=== PATIENT | male | born 1965 | race Caucasian/White ===

== ENCOUNTER → 2016-08-15 | Day surgery (SDC) | payer BC ==
[~2016-08-15] VITALS: Ht 177.8 cm; Wt 83.0 kg
[~2016-08-15] MED LIST: ACETAMINOPHEN 1000 MG/100 ML VIAL IV ONE; ACETAMINOPHEN/HYDROcodone 325 MG/5 MG TAB PO PRN; BUPIVACAINE/EPINEPHRINE 0.25% 50 ML VIAL ONE; BUPIVACAINE/EPINEPHRINE 0.5% 50 ML VIAL ONE; CHLORHEXIDINE GLUCONATE 2 % 1 PACK (2 CLOTHS) TOPICAL PRN; CHLORHEXIDINE GLUCONATE 4% SOLN 120 ML BTL TOPICAL SCH; DO NOT ADM ANY ANTICOAGULANT DRUGS PRN; EPINEPHrine HCL (1:1000) 30 MG/30 ML VIAL ONE; EPINEPHrine HCL (1:1000) 30 MG/30 ML VIAL OTHER ONE; INSULIN HUMAN REGULAR 1,000 UNITS/10 ML VIAL SQ PRN; LACTATED RINGER'S 1000 ML INJ 1,000 ML IV ONE; LACTATED RINGER'S 1000 ML IV PRN; METOPROLOL TARTRATE 25 MG TAB PO PRN; MIDAZOLAM HCL 2 MG/2 ML VIAL ONE; MORPHINE SULFATE 4 MG/ML INJ IV PUSH PRN; MORPHINE SULFATE 8 MG/ML INJ IV PUSH PRN; NORC5TAB PO; ONDANSETRON HCL 4 MG/2 ML VIAL IV PUSH ONE; POVIDONE IODINE 5% (ANTISEPSIS KIT) 4 APPLICATIONS EACH NARE PRN; POVIDONE IODINE 7.5% SCRUB 118 ML BOTTLE TOPICAL SCH; PROPOFOL 200 MG/20 ML AMP IV ONE; SODIUM CHLORID 0.9% 500 ML IV PRN; SODIUM CHLORIDE 0.9% FLUSH 10 ML FLUSH IV FLUSH PRN; SODIUM CHLORIDE 0.9% FLUSH 10 ML FLUSH IV FLUSH SCH; TRIAMCINOLONE ACETONIDE 40 MG/ML VIAL I-ARTICULR ONE; ceFAZolin 2 GM PREMIX 50 ML IV SCH
[2016-08-15 11:12] VITALS: BP 140/86; PULSE 66; RESP 18; TEMP 97.6; O2SAT 99
--- NOTE | 2016-08-15 14:24 | PD.OP ---
cc: Stepan Huerta MD Operative Report Date of Surgery: Aug 15, 2016 Preoperative Diagnosis: Right knee bucket-handle medial meniscal tear. Chondral malacia medial femoral condyle. Postoperative Diagnosis: Same Procedure: Right knee arthroscopy with partial medial meniscectomy and chondroplasty of the medial femoral condyle Anesthesia: Gen. Surgeon: Stepan Huerta [employer] Team Leader(s): PEPE Winslow The surgical procedure was assisted by my Advanced Registered Nurse Practitioner. My BUSINESS DEVELOPMENT INTERN presence was necessary throughout this case for the manipulation and positioning of the surgical extremity. My BUSINESS DEVELOPMENT INTERN was assisting me throughout the duration of this procedure. The skill set of an Advance Registered Nurse Practitioner was medically necessary to complete this procedure. During the surgical case, the surgical scheduler was working at the back table and the Advance Registered Nurse Practitioner was directly assisting me. Operation and Findings: Tourniquet time 0 minutes. The patient was brought back to the operative theater. He received intravenous Ancef. Gen. anesthesia was administered. The right lower extremity was prepped and draped in usual sterile fashion. We made standard inferolateral portal which revealed approximately 15 cc of joint effusion with no signs of infection. There was moderate synovitis found within the suprapatellar pouch. The patellofemoral joint had minimal chondromalacia. The medial compartment was evaluated. Medial portal was created under spinal needle visualization. We immediately found a displaced bucket handle medial meniscal tear. This accomplished the entire meniscus from anterior horn through posterior horn. The tear was through the whitewhite zone. Therefore, we did not feel that a repair could be possible. We removed the displaced portion of the medial meniscus by trimming the anterior horn and then the posterior horn. We then used an oscillating shaver to clean the edges of the remnant meniscus by the capsule. Approximately 70% of the meniscus was removed. There was some grade 3 chondromalacia about the medial femoral condyle of a small degree. A chondroplasty was performed. There was synovitis within the ACL but appeared to be intact. The lateral compartment was free of chondromalacia with no meniscal tear. Interarticular injection was given into the right knee of a quarter percent Marcaine with 40 mg of Kenalog. The arthroscopic portals were closed with 2-0 Vicryl followed by 3-0 nylon. Postoperative plan is weight-bear as tolerated. Stepan Huerta MD Aug 15, 2016 14:24
[2016-08-15 16:00] VITALS: BP 126/77; PULSE 61; RESP 20; TEMP 98.4; O2SAT 98
--- NOTE | 2016-08-15 16:20 | EKG ---
Date Performed: 08/15/2016 Time Performed: 10:57:01 PTAGE: 51 years EKG: Sinus rhythm INCOMPLETE RIGHT BUNDLE BRANCH BLOCK BORDERLINE ECG NO PREVIOUS TRACING DOCTOR: Breanne King Interpretating Date/Time 08/15/2016 16:19:35
== END | disposition home or self-care (01) ==
LOC: HSDC 10:23
PROVIDERS: ATTEND Orthopaedic Surgery
DX: S83.211A Bucket-handle tear of medial meniscus, current injury, right knee, initial encounter (principal); M94.261 Chondromalacia, right knee; R94.31 Abnormal electrocardiogram [ECG] [EKG]
CPT/HCPCS: 01400; 29881; 93005; J0131; J0171; J0690; J2250; J2405; J3010; J3301; J7120